=== PATIENT | female | born 1960 | race African-American/Black ===

== ENCOUNTER 2017-03-23 07:46 | Emergency (ER) | payer OTHER ==
[2017-03-23 07:51] VITALS: BP 138/77; PULSE 63; TEMP 98.3; BMI 24.0
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
== END 2017-03-23 09:00 | disposition home or self-care (01) ==
LOC: JERFT 07:46 → SUPCPDRO 07:46 → JERFT 09:00
DX: S50.872A Other superficial bite of left forearm, initial encounter (principal); W50.3XXA Accidental bite by another person, initial encounter; Y93.F1 Activity, caregiving, bathing; Y92.111 Bathroom in children's home and orphanage as the place of occurrence of the external cause; Y99.0 Civilian activity done for income or pay
CPT/HCPCS: 99281-25

== ENCOUNTER 2024-02-03 12:52 | Emergency (ER) | payer SELFPAY ==
[2024-02-03 13:09] VITALS: BP 112/76; PULSE 81; RESP 18; TEMP 98.2; BMI 27.4
== END 2024-02-03 13:59 | disposition home or self-care (01) ==
LOC: JERFT 12:52
DX: R21 Rash and other nonspecific skin eruption (principal)
CPT/HCPCS: 99283-25